=== PATIENT | male | born 1985 | race Caucasian/White ===

== ENCOUNTER 2022-08-18 12:31 | Emergency (ER) | payer BC, SELFPAY ==
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
[2022-08-18 12:37] VITALS: BP 151/93; PULSE 86; RESP 16; TEMP 36.6; O2SAT 97; BMI 24.1
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
[2022-08-18] MEDS: HYDROcodone-acetaminophen 5-325 mg Tablet 1 TAB PO (13:26)
--- NOTE | 2022-08-18 13:29 | PC.NURSE ---
pt refused ortho shoe.
== END 2022-08-18 13:29 | disposition home or self-care (01) ==
PROVIDERS: Emergency Provider Emergency Medicine; PCP Family Medicine
DX: S92.425A Nondisplaced fracture of distal phalanx of left great toe, initial encounter for closed fracture (principal); V86.56XA Driver of dirt bike or motor/cross bike injured in nontraffic accident, initial encounter
CPT/HCPCS: 73630; 99283

== ENCOUNTER → 2023-04-23 13:03 | Outpatient (BNVA) | payer BC, SELFPAY | PROVIDERS: PCP Family Medicine; Visit Provider Nurse Practitioner Family | DX: R09.81 Nasal congestion (principal); J10.1 Influenza due to other identified influenza virus with other respiratory manifestations | CPT/HCPCS: 87400 ==

== ENCOUNTER → 2024-04-27 13:50 | Outpatient (BNVA) | payer BC, SELFPAY | PROVIDERS: PCP Family Medicine; Visit Provider Emergency Medicine | DX: I10 Essential (primary) hypertension (principal); R50.9 Fever, unspecified; R03.0 Elevated blood-pressure reading, without diagnosis of hypertension; F19.90 Other psychoactive substance use, unspecified, uncomplicated | CPT/HCPCS: 80053; 84403; 84443; 85025; 87400 ==

== ENCOUNTER 2024-05-24 14:56 | Outpatient (CLI) | payer BC, SELFPAY ==
--- NOTE | 2024-05-24 15:00 | USCV_ITS ---
Rd Rangel Age: 38 Gender: M : 1985 Exam Date: 05/24/2024 15:18 Ordering Phys: Morris Trevino Technologist: CT [place] [facility] [place] Indication: BP: 154 / 92 HR: 58 Rhythm: Sinus Technical Quality: Adequate MEASUREMENTS (Male / Female) Normal Values 2D ECHO LVOT Diameter 2.2 cm LV Ejection Fraction MOD 4C 59.8 % LV Ejection Fraction MOD 2C 64.9 % LV Ejection Fraction 2C AL 65.9 % LA Diameter 3.2 cm RA Systolic Volume 4C AL 67.4 ml RA Systolic Volume 4C MOD 63.5 ml LA Sys Volume AL 63.3 cm cubed LA Sys Volume Index AL 30.2 cm cubed/m squared Aorta at Sinotubular Diameter 2.7 cm IVC Diameter 1.5 cm M-MODE LA Ao Ratio MM 1.1 AV Cusp Separation MM 2.2 cm DOPPLER AV Peak Velocity 124.0 cm/s LVOT Peak Velocity 109.0 cm/s AV Area Cont Eq vti 4.3 cm squared AV Area Cont Eq pk 3.3 cm squared MV Peak Velocity 91.0 cm/s MV Area PHT 4.3 cm squared Mitral E to A Ratio 1.9 TR Peak Velocity 159.0 cm/s TR Peak Gradient 10.1 mmHg TV Peak E Velocity 75.0 cm/s PV Peak Velocity 109.0 cm/s FINDINGS Left Ventricle Left ventricle is normal in size. LV systolic function normal with EF of 60 to 65%. No regional wall motion abnormalities are seen. Right Ventricle Normal in size and function Right Atrium Normal in size Left Atrium Normal in size Mitral Valve Structurally normal mitral valve. Mild mitral regurgitation. Aortic Valve Structurally normal aortic valve. No significant stenosis or regurgitation Tricuspid Valve Insufficient TR jet to evaluate RVSP. Pulmonic Valve Trace pulmonic regurgitation. Pericardium Normal Aorta Normal in size IVC Appears to be normal CONCLUSIONS LV systolic function is normal with EF of 60-65% Mild mitral regurgitation Trace pulmonic regurgitation. No comparison studies are available. Tavo العلي MD (Electronically Signed) Final Date: 30 May 2024 10:41 S
== END 2024-05-24 14:57 | disposition home or self-care (01) ==
PROVIDERS: PCP Family Medicine; Visit Provider Emergency Medicine
DX: F19.90 Other psychoactive substance use, unspecified, uncomplicated (principal); I34.0 Nonrheumatic mitral (valve) insufficiency
CPT/HCPCS: 93306

== ENCOUNTER → 2024-05-27 08:35 | Outpatient (BNVA) | payer BC, SELFPAY | PROVIDERS: PCP Family Medicine; Visit Provider Family Medicine | DX: R53.83 Other fatigue (principal) | CPT/HCPCS: 84403 ==

== ENCOUNTER 2025-02-28 06:53 | Outpatient (CLI) | payer BC, SELFPAY ==
[2025-02-28 08:39] LABS: Sperm Count 40.0000 mill/mL (40-160)
[2025-02-28 08:40] LABS: Sperm Progressive Motility 60 % (31-34); Viscosity Semen Droplets; Volume Semen 4.0 mL (2-5)
[2025-02-28 08:41] LABS: Pathology Referral Yes; Sperm Immotility 40 % (50-60); Sperm Non-Progressive Motility 0 % (5-10); White Blood Count Semen 0-4 /hpf
== END 2025-02-28 06:54 | disposition home or self-care (01) ==
LOC: LAB 06:54
PROVIDERS: PCP Family Medicine; Visit Provider Nurse Practitioner Women's Health
DX: N46.9 Male infertility, unspecified (principal)
CPT/HCPCS: 80503; 89320